=== PATIENT | female | born 1935 | race Caucasian/White ===

== ENCOUNTER → 2023-03-31 10:47 | Outpatient (REF) | payer OTHER, SELFPAY | LOC: DHCBC HW 10:47 | PROVIDERS: ATTENDING PHYSICIAN Internal Medicine Cardiovascular Disease; FAMILY PHYSICIAN Internal Medicine | DX: I45.10 Unspecified right bundle-branch block (principal) | CPT/HCPCS: 93306 ==

== ENCOUNTER → 2024-01-12 12:13 | Outpatient (REF) | payer OTHER, SELFPAY | LOC: HWWDC 12:13 | PROVIDERS: ATTENDING PHYSICIAN Surgery; FAMILY PHYSICIAN Internal Medicine | DX: Z12.31 Encounter for screening mammogram for malignant neoplasm of breast (principal) | CPT/HCPCS: 77063; 77067 ==

== ENCOUNTER → 2024-07-19 11:16 | Outpatient (REF) | payer OTHER, SELFPAY | LOC: HWWDC 11:16 | PROVIDERS: ATTENDING PHYSICIAN Internal Medicine; REFERRING PHYSICIAN Surgery | DX: Z12.31 Encounter for screening mammogram for malignant neoplasm of breast (principal) | CPT/HCPCS: 77061; 77065 ==